=== PATIENT | male | born 1990 | race American Indian/Alaskan Native ===

== ENCOUNTER 2020-06-28 16:04 | Emergency (ER) | payer OTHER ==
[2020-06-28 16:20] VITALS: BP 95/57
[2020-06-28] MEDS ORDERED: DIPHtheria,PERTUSSIS(ACELL),TETANUS VACCINE/PF 0.5 ML VIAL IM ONE (16:57)
[2020-06-28] MEDS ORDERED: HYDROcodone/ACETAMINOPHEN 5-325 MG TAB PO ONE (16:57)
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
[2020-06-28] MEDS ORDERED: ceFAZolin 1 GM VIAL IM ONE (17:55)
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
== END 2020-06-28 18:45 | disposition home or self-care (01) ==
LOC: ED 16:04
DX: S62.326A Displaced fracture of shaft of fifth metacarpal bone, right hand, initial encounter for closed fracture (principal); S61.216A Laceration without foreign body of right little finger without damage to nail, initial encounter; F17.200 Nicotine dependence, unspecified, uncomplicated; Z98.890 Other specified postprocedural states; Z79.899 Other long term (current) drug therapy; W22.03XA Walked into furniture, initial encounter; Y93.89 Activity, other specified; Y92.89 Other specified places as the place of occurrence of the external cause; Y99.8 Other external cause status
CPT/HCPCS: 12001; 29125; 73130; 90471; 90715; 96372; 99284; J0690